=== PATIENT | female | born 1980 | race Caucasian/White ===

== ENCOUNTER 2023-03-25 18:09 | Inpatient (IN) | payer BC ==
[~2023-03-25] VITALS: Ht 162.6 cm; Wt 81.0 kg
[~2023-03-25 18:09] MED LIST: QUET50TA PO; [UNRECOGNIZED DRUG - CODE] PO
[2023-03-25 18:11] VITALS: TEMP 98.4
[2023-03-25] MEDS ORDERED: morphine 4 MG/ML inj SYRINge IV ONE ×3 (18:15→18:25)
[2023-03-25] MEDS ORDERED: heparin 25,000 UNIT/250ml bag 250 ML IV PRN (18:20)
[2023-03-25] MEDS ORDERED: nitroGLYCERIN 1gm ointment UD TP ONE (18:20)
[2023-03-25] MEDS ORDERED: heparin 10,000 units/1 ML INJ IV PRN (18:20)
[2023-03-25] MEDS ORDERED: heparin 10,000 units/1 ML INJ IV ONE (18:20)
[2023-03-25] MEDS ORDERED: tirofiban 12.5mg in NS 250mL 250 ML IV ONE (18:24)
[2023-03-25] MEDS ORDERED: ondansetron/PF 4mg/2ml inj IV ONE (18:25)
[2023-03-25] MEDS: nitroGLYCERIN 1gm ointment UD TP ONE ×2 (18:26→21:40)
--- NOTE | 2023-03-25 18:30 | NUR ---
Pt to syrup machine laborer, JOSE M Engel transporting.
[2023-03-25] MEDS ORDERED: fentaNYL/PF 50MCG/1 ML 2ML syringe ONE ×3 (18:37→18:56)
[2023-03-25] MEDS ORDERED: midazolam 1 mg/ML 2ml injection ONE ×3 (18:37→18:56)
[2023-03-25] MEDS ORDERED: diphenhydrAMINE 50 mg/ml inj ONE (18:38)
[2023-03-25 18:41] LABS: BASOPHILS % (AUTO) 0.3 % (0-1); EOSINOPHILS # (AUTO) 0.1 X10'3 (0-0.9); EOSINOPHILS % (AUTO) 0.5 % (0-6); HEMATOCRIT 41.5 % (35.0-45.0); HEMOGLOBIN 14.2 g/dl (12.0-16.0); LYMPHOCYTES # (AUTO) 3.4 X10'3 (1.1-4.8); LYMPHOCYTES % (AUTO) 31.7 % (21-51); MEAN CORPUSCULAR HEMOGLOBIN 32.2 PG (27.0-31.0); MEAN CORPUSCULAR HGB CONC 34.3 g/dL (33.0-36.5); MEAN PLATELET VOLUME 7.9 FL (7.4-10.4); MONOCYTES # (AUTO) 0.8 X10'3 (0-0.9); MONOCYTES % (AUTO) 7.1 % (2-12); NEUTROPHILS # (AUTO) 6.4 X10'3 (1.8-7.7); NEUTROPHILS % (AUTO) 60.4 % (42-75); PLATELET COUNT 276 X10'3 (140-440); RED BLOOD COUNT 4.42 X10'6 (4.20-5.60); RED CELL DISTRIBUTION WIDTH 13.4 % (11.5-14.5); WHITE BLOOD COUNT 10.6 X10'3 (4.5-11.0)
[2023-03-25] MEDS ORDERED: iohexol 350 MG/ML 50ML vial IV ONE ×2 (18:48→20:21)
[2023-03-25 18:53] LABS: ALANINE AMINOTRANSFERASE 20 U/L (12-78); ALBUMIN 3.8 G/DL (3.4-5.0); ALBUMIN/GLOBULIN RATIO 1.3 (1.1-1.5); ALKALINE PHOSPHATASE 75 IU/L (46-116); ANION GAP 10 (8-16); ASPARTATE AMINO TRANSFERASE 17 U/L (10-37); BILIRUBIN,TOTAL 0.4 MG/DL (0.1-1.0); BLOOD UREA NITROGEN 10 MG/DL (7-18); BUN/CREATININE RATIO 13.2 (10.0-20.0); CALCIUM 8.8 MG/DL (8.5-10.1); CHLORIDE 105 MMOL/L (99-107); CREATININE 0.76 MG/DL (0.40-0.90); GLUCOSE 117 MG/DL (70-104); POTASSIUM 4.2 MMOL/L (3.5-5.1); SODIUM 137 MMOL/L (135-145); TOTAL CARBON DIOXIDE 22.5 MMOL/L (24-32); TOTAL PROTEIN 6.7 G/DL (6.4-8.2); eCRCL 88 ML/MIN; eGFR 84 ML/MIN
[2023-03-25 19:00] LABS: MAGNESIUM 1.7 MG/DL (1.5-2.4); PRO BRAIN NATRIURETIC PEPTIDE 110 PG/ML (0-125)
[2023-03-25] MEDS ORDERED: nitroGLYCERIN 500mcg/5mL D5W 5 ML IV ONE (19:01)
[2023-03-25 19:05] LABS: INR 1.8 INR; PROTHROMBIN TIME 18.7 SECONDS (9.0-12.0)
[2023-03-25] MEDS ORDERED: iohexol 350MG/ML 100ml bottle IV ONE (19:36)
[2023-03-25] MEDS ORDERED: temazepam 15mg capsule PO PRN (21:00)
[2023-03-25] MEDS ORDERED: clopidogrel 300mg tablet PO ONE (21:10)
[2023-03-25 21:25] VITALS: BP_SYST 108; BP_SYST 123; BP_DIAS 54; BP_DIAS 67; PULSE 66; RESP 13; O2SAT 99
[2023-03-25] MEDS ORDERED: pantoprazole 40mg Tablet.DR PO ONE (21:40)
[2023-03-25 22:00] VITALS: BP 128/75; PULSE 56; RESP 20; O2SAT 97
[2023-03-25] MEDS ORDERED: morphine 2 MG/ML inj. syringe IV PRN ×2 (22:25)
[2023-03-25] MEDS ORDERED: acetaminophen 325mg tablet PO PRN ×4 (22:25→22:45)
[2023-03-25] MEDS ORDERED: HYDROmorphone inj. 0.5 MG/0.5 ML DISP.SYRIN IV PRN (22:25)
[2023-03-25] MEDS ORDERED: magnesium hydroxide 30ml (MOM) UD suspension PO PRN ×2 (22:25→22:45)
[2023-03-25] MEDS ORDERED: HYDROcodone/acetaminophen 10/325mg tab PO PRN ×2 (22:25→22:45)
[2023-03-25] MEDS ORDERED: diphenhydrAMINE 25mg capsule PO PRN (22:25)
[2023-03-25] MEDS ORDERED: ondansetron 4mg rapidly disintigrating tab PO PRN (22:25)
[2023-03-25] MEDS ORDERED: metoclopramide 5 mg/ml inj IV PRN (22:25)
[2023-03-25] MEDS ORDERED: ipratropium/albuterol 3ml nebule NEB PRN (22:25)
[2023-03-25] MEDS ORDERED: bisacodyl 10mg suppository rectal RC PRN (22:25)
[2023-03-25] MEDS ORDERED: mag hydrox/Alum hydrox/simeth 30ml oral suspension PO PRN (22:25)
[2023-03-25] MEDS ORDERED: ondansetron/PF 4mg/2ml inj IV PRN (22:25)
[2023-03-25] MEDS ORDERED: diphenhydrAMINE 50 mg/ml inj IV PRN (22:25)
[2023-03-25] MEDS ORDERED: HYDROcodone/acetaminophen 5mg/325mg tablet PO PRN (22:25)
--- NOTE | 2023-03-25 22:29 | NUR ---
third call to pharmacy to send plavix
[2023-03-25] MEDS: quetiapine 100mg tablet PO SCH (22:41)
[2023-03-25] MEDS ORDERED: proCHLORperazine 10 MG/2 ml inj IV PRN (22:45)
[2023-03-25] MEDS ORDERED: aspirin 81mg tab.chew PO ONE (22:45)
[2023-03-25] MEDS ORDERED: morphine 10mg/ml inj. IV PRN (22:45)
[2023-03-25] MEDS ORDERED: nitroGLYCERIN 0.4mg SUBLingual tab SL PRN (22:45)
[2023-03-25] MEDS: nitroGLYCERIN-Tridil 50MG/D5W 250 ML IV SCH (22:45)
[2023-03-25] MEDS ORDERED: normal saline 1000ml 1,000 ML IV ONE (22:55)
[2023-03-25] MEDS: normal saline 1000ml 1,000 ML IV SCH (22:56)
[2023-03-25] MEDS: morphine 4 MG/ML inj SYRINge IV PRN (22:59)
[2023-03-25 23:00] VITALS: BP 140/80; PULSE 55; RESP 19; O2SAT 98
[2023-03-25 23:04] LABS: HEMOGLOBIN A1C 5.1 % (4.5-6.2)
[2023-03-25 23:08] LABS: LIPASE 30 U/L (16-77); PHOSPHORUS 3.1 MG/DL (2.3-4.5)
[2023-03-25] MEDS ORDERED: tirofiban 12.5mg in NS 250mL 250 ML IV PRN (23:10)
[2023-03-25 23:41] LABS: BILIRUBIN,URINE NEGATIVE (Neg); CLARITY,URINE CLEAR (Clear); COLOR,URINE YELLOW (Yellow); GLUCOSE, URINE NEGATIVE (Neg); KETONES,URINE TRACE mg/dl (Neg); LEUKOCYTE ESTERASE ,URINE NEGATIVE (Neg); NITRITES, URINE NEGATIVE (Neg); OCCULT BLOOD,URINE NEGATIVE (Neg); PROTEIN,URINE NEGATIVE (Neg)
[2023-03-25 23:44] LABS: UA COLLECTION TYPE FOLEY CATH
[2023-03-26] VITALS (37 sets, daily range): BP systolic 90–133; BP diastolic 5–75; PULSE 49–83; RESP 11–21; O2SAT 93–99
[2023-03-26 00:36] LABS: BASOPHILS % (AUTO) 0.2 % (0-1); EOSINOPHILS % (AUTO) 0.4 % (0-6); HEMATOCRIT 34.5 % (35.0-45.0); HEMOGLOBIN 11.9 g/dl (12.0-16.0); LYMPHOCYTES # (AUTO) 3.1 X10'3 (1.1-4.8); LYMPHOCYTES % (AUTO) 36.2 % (21-51); MEAN CORPUSCULAR HEMOGLOBIN 32.5 PG (27.0-31.0); MEAN CORPUSCULAR HGB CONC 34.6 g/dL (33.0-36.5); MEAN CORPUSCULAR VOLUME 94.1 FL (78-98); MEAN PLATELET VOLUME 7.4 FL (7.4-10.4); MONOCYTES # (AUTO) 0.4 X10'3 (0-0.9); NEUTROPHILS % (AUTO) 58.2 % (42-75); PLATELET COUNT 228 X10'3 (140-440); RED BLOOD COUNT 3.67 X10'6 (4.20-5.60); RED CELL DISTRIBUTION WIDTH 13.1 % (11.5-14.5); WHITE BLOOD COUNT 8.5 X10'3 (4.5-11.0)
[2023-03-26 00:43] LABS: ALANINE AMINOTRANSFERASE 17 U/L (12-78); ALBUMIN 2.8 G/DL (3.4-5.0); ALBUMIN/GLOBULIN RATIO 1.2 (1.1-1.5); ALKALINE PHOSPHATASE 58 IU/L (46-116); ANION GAP 5 (8-16); ASPARTATE AMINO TRANSFERASE 18 U/L (10-37); BILIRUBIN,TOTAL 0.4 MG/DL (0.1-1.0); BLOOD UREA NITROGEN 7 MG/DL (7-18); BUN/CREATININE RATIO 13.5 (10.0-20.0); CALCIUM 7.9 MG/DL (8.5-10.1); CHLORIDE 109 MMOL/L (99-107); CHOL/HDL RATIO 4.2 (0.00-4.99); CHOLESTEROL 160 MG/DL (0-200); CREATININE 0.52 MG/DL (0.40-0.90); GLUCOSE 90 MG/DL (70-104); HDL CHOLESTEROL 38 MG/DL (35-60); LDL CHOLESTEROL 104 MG/DL (50-100); POTASSIUM 4.1 MMOL/L (3.5-5.1); SODIUM 137 MMOL/L (135-145); TOTAL CARBON DIOXIDE 22.9 MMOL/L (24-32); TOTAL PROTEIN 5.1 G/DL (6.4-8.2); TRIGLYCERIDES 83 MG/DL (20-135); eCRCL 123 ML/MIN; eGFR > 90 ML/MIN
[2023-03-26] MEDS: morphine 4 MG/ML inj SYRINge IV PRN ×3 (03:07→11:45)
--- NOTE | 2023-03-26 06:30 | NUR ---
Patient in room ICU 2046. I have received report from myrtle and had the opportunity to ask questions and assume patient care.
[2023-03-26] MEDS ORDERED: pantoprazole 40mg Tablet.DR PO SCH (07:30)
[2023-03-26] MEDS ORDERED: atorvastatin 20mg tablet PO SCH (08:00)
[2023-03-26] MEDS ORDERED: aspirin 81mg, enteric-coated 1 TAB TABLET.DR PO SCH (08:00)
[2023-03-26] MEDS ORDERED: docusate sod 100mg capsule PO SCH (08:00)
[2023-03-26] MEDS ORDERED: [UNRECOGNIZED DRUG - OTHER] PO SCH (08:00)
[2023-03-26] MEDS ORDERED: clopidogrel 75mg tablet PO SCH (08:00)
[2023-03-26] MEDS: docusate sod 100mg capsule PO SCH ×2 (08:41→20:00)
[2023-03-26] MEDS: cyclobenzaprine 10mg tablet PO PRN ×2 (09:41→18:47)
[2023-03-26] MEDS ORDERED: LIDOcaine 1% (10mg/ml)w/preservative inj. 20ml MDV ONE (09:52)
--- NOTE | 2023-03-26 10:30 | NUR ---
pt given 1 norco for posterior peralta pain- 'deidre out' neuro signs intact. pain now rt leg and sheath area- ms 4mg iv given, then flexeril. pain lessened with these meds. awaiting removal of rt fem sheath by ammunition assembly laborer.vss. no hematoma
--- NOTE | 2023-03-26 10:45 | NUR ---
c/o increased pain rt sheath and cramps rt leg- waveform dampened, but reading only 30s to 20's when waveform improved. flushing with ns and with transducer causes pt to yell out in pain. laboratory specialist called- awaiting dr jarrell availability to attempt removal of sheath.
--- NOTE | 2023-03-26 11:05 | NUR ---
Calorie count consult: Per EMR pt admit for STEMI, currently on a clear liquid diet. Calorie count not indicated at this time as current diet is insufficient to meet estimated nutrient needs regardless of PO intake. Per EMR pt with h/o gastric surgery. Per verbal d/w RN unsure if pt had a Dionicio-en-Y or gastric sleeve. Pt sleeping during attempted visit and RD asked not to wake pt as she has been in significant pain. Pt denied wt loss or decreased appetite/PO intake per malnutrition risk screen with RN. No nutrition interventions to be implemented at this time. Will continue to follow and make recommendations as appropriate. Addendum: 03/26/23 at [address] Amended: Links added.
--- NOTE | 2023-03-26 12:30 | NUR ---
cardiac cath technician personnel here- unable to place guide wire and remove sheath. will await dr martinez.
[2023-03-26] MEDS ORDERED: midazolam 1 mg/ML 2ml injection ONE (12:40)
[2023-03-26] MEDS ORDERED: fentaNYL/PF 50MCG/1 ML 2ML syringe ONE (12:40)
[2023-03-26] MEDS: normal saline 1000ml 1,000 ML IV SCH ×3 (13:00→22:53)
[2023-03-26] MEDS ORDERED: MESSAGE TO NURSING PO ONE ×2 (13:10)
[2023-03-26] MEDS ORDERED: cefazolin/dext.iso 2gm/50ml 50 ML IV ONE (13:10)
[2023-03-26] MEDS ORDERED: MESSAGE TO PHARMACY IJ ONE (13:10)
--- NOTE | 2023-03-26 14:00 | NUR ---
pt to go to or in am for removal of sheath- pt expressing continued uncomfortableness and pain. friends and at bs today. norco 10 2 and serax 15mg given- pt to sleep. friend brought her in food- took small amt chicken wings and fries
[2023-03-26] MEDS: HYDROcodone/acetaminophen 10/325mg tab PO PRN ×3 (15:03→22:53)
[2023-03-26] MEDS: OXAZEpam 15mg capsule PO PRN (15:03)
--- NOTE | 2023-03-26 18:15 | NUR ---
Patient in room ICU 2046. I have received report from Sandra SALGUERO and had the opportunity to ask questions and assume patient care.
[2023-03-26] MEDS: quetiapine 100mg tablet PO SCH (20:36)
[2023-03-26] MEDS ORDERED: QUETIAPINE FUMARATE 100 MG PO SCH (21:00)
[2023-03-26] MEDS: nitroGLYCERIN-Tridil 50MG/D5W 250 ML IV SCH (22:45)
[2023-03-27] VITALS (14 sets, daily range): BP systolic 96–150; BP diastolic 55–99; PULSE 46–74; RESP 16–20; O2SAT 94–97
[2023-03-27] MEDS: HYDROcodone/acetaminophen 10/325mg tab PO PRN ×2 (02:55→09:52)
[2023-03-27 05:35] LABS: HEMOGLOBIN 11.3 g/dl (12.0-16.0); MEAN CORPUSCULAR HEMOGLOBIN 32.3 PG (27.0-31.0); MEAN CORPUSCULAR HGB CONC 34.2 g/dL (33.0-36.5); MONOCYTES # (AUTO) 0.4 X10'3 (0-0.9)
[2023-03-27 05:37] LABS: BASOPHILS % (AUTO) 0.5 % (0-1); EOSINOPHILS # (AUTO) 0.1 X10'3 (0-0.9); EOSINOPHILS % (AUTO) 1.3 % (0-6); HEMATOCRIT 32.9 % (35.0-45.0); LYMPHOCYTES # (AUTO) 2.4 X10'3 (1.1-4.8); LYMPHOCYTES % (AUTO) 42.9 % (21-51); MEAN CORPUSCULAR VOLUME 94.5 FL (78-98); MEAN PLATELET VOLUME 7.5 FL (7.4-10.4); MONOCYTES % (AUTO) 7.8 % (2-12); NEUTROPHILS # (AUTO) 2.7 X10'3 (1.8-7.7); NEUTROPHILS % (AUTO) 47.5 % (42-75); PLATELET COUNT 170 X10'3 (140-440); RED BLOOD COUNT 3.49 X10'6 (4.20-5.60); RED CELL DISTRIBUTION WIDTH 13.3 % (11.5-14.5); WHITE BLOOD COUNT 5.7 X10'3 (4.5-11.0)
[2023-03-27 05:51] LABS: ALANINE AMINOTRANSFERASE 14 U/L (12-78); ALBUMIN 2.6 G/DL (3.4-5.0); ALBUMIN/GLOBULIN RATIO 1.2 (1.1-1.5); ALKALINE PHOSPHATASE 56 IU/L (46-116); ANION GAP 8 (8-16); ASPARTATE AMINO TRANSFERASE 23 U/L (10-37); BILIRUBIN,TOTAL 0.3 MG/DL (0.1-1.0); BLOOD UREA NITROGEN 8 MG/DL (7-18); BUN/CREATININE RATIO 14.3 (10.0-20.0); CALCIUM 7.8 MG/DL (8.5-10.1); CHLORIDE 110 MMOL/L (99-107); CREATININE 0.56 MG/DL (0.40-0.90); GLUCOSE 78 MG/DL (70-104); POTASSIUM 4.2 MMOL/L (3.5-5.1); SODIUM 140 MMOL/L (135-145); TOTAL CARBON DIOXIDE 22.1 MMOL/L (24-32); TOTAL PROTEIN 4.8 G/DL (6.4-8.2); eCRCL 114 ML/MIN; eGFR > 90 ML/MIN
--- NOTE | 2023-03-27 06:18 | NUR ---
Problems reprioritized. Patient report given, questions answered & plan of care reviewed with Sandra SALGUERO.
--- NOTE | 2023-03-27 06:30 | NUR ---
Patient in room ICU 2046. I have received report from anita and had the opportunity to ask questions and assume patient care.
[2023-03-27] MEDS ORDERED: ceFAZolin 1000mg inj ONE (06:53)
[2023-03-27] MEDS ORDERED: heparin 10,000 units/1 ML INJ ONE (06:53)
[2023-03-27] MEDS: morphine 4 MG/ML inj SYRINge IV PRN ×2 (06:57→09:07)
[2023-03-27] MEDS ORDERED: BUPIVAcaine 0.5% inj/PF 30 ML ONE (07:26)
[2023-03-27] MEDS ORDERED: cefazolin 2gm/D5W 100ml IV.soln IV ONE (07:43)
[2023-03-27] MEDS ORDERED: LIDOcaine 2% (20mg/ml) 5ml vial ONE (07:43)
[2023-03-27] MEDS ORDERED: sevoflurane 250ml liquid IH ONE (07:43)
--- NOTE | 2023-03-27 07:45 | NUR ---
pt signed surgical and blood consent. preop check list done. to or by bed
[2023-03-27] MEDS ORDERED: fentaNYL/PF 50MCG/1 ML 2ML syringe ONE (07:53)
[2023-03-27] MEDS ORDERED: midazolam 1 mg/ML 2ml injection ONE (07:53)
[2023-03-27] MEDS ORDERED: BUPIVAcaine/PF 2.5 mg/ml (0.25%) 30ml vial IJ ONE (08:16)
[2023-03-27] MEDS ORDERED: propofol inj 20 ML IV ONE (08:25)
[2023-03-27] MEDS ORDERED: ondansetron/PF 4mg/2ml inj ONE (08:44)
[2023-03-27] MEDS ORDERED: dexamethasone sod phosphate 4mg/ml inj. ONE (08:44)
--- NOTE | 2023-03-27 08:45 | NUR ---
pt returned from or crying, yelling out in pain- ms rmg, then 2mg given without pain relief. assisted pt to reposition to side.
--- NOTE | 2023-03-27 09:00 | NUR ---
rt sheath site drsg with sm amt drainage
--- NOTE | 2023-03-27 09:30 | NUR ---
continued pain rt leg- dr davis in, discussed with dr martinez. norco 10 x 2 and serax 15 given
[2023-03-27] MEDS: OXAZEpam 15mg capsule PO PRN (09:51)
[2023-03-27] MEDS ORDERED: MESSAGE TO NURSING PO ONE (10:00)
--- NOTE | 2023-03-27 10:30 | NUR ---
ok to go home- pain better, fc dcd and pt voided. family here. dr davis discussed quiting smoking to pt- she became angry- yelling out
[2023-03-27] MEDS ORDERED: ASPI-1071 PO ×2 (10:43)
[2023-03-27] MEDS ORDERED: ATOR20TA66 PO ×3 (10:43→12:45)
[2023-03-27] MEDS ORDERED: HYDR-3972 PO ×3 (10:43→13:25)
[2023-03-27] MEDS ORDERED: NITR0.4T51 SL ×3 (10:43→12:45)
[2023-03-27] MEDS ORDERED: CLOP75TA34 PO ×3 (10:43→12:45)
--- NOTE | 2023-03-27 11:30 | NUR ---
ivs dcd, instructions given- will change rt sheath drsg on wednesday and as needed- drsgs given. instructed to notify for bleeding, drainage, fever. call to dr davis re return to work and note- given. am meds given
--- NOTE | 2023-03-27 11:30 | NUR ---
out via [facility]. rx did not receive rx. call to rx and noted rx on chart is in [place]. dr davis notified. pts notified. rx closes at 1400- md aware and will escript rxs again no finance department available today, as pt willing to pay deposit for stay. will defer.
[2023-03-27] MEDS ORDERED: NICO1PAT36 TOP ×2 (11:34)
[2023-03-27] MEDS ORDERED: NICO-687 TOP (12:45)
[2023-03-27] MEDS ORDERED: ASPI81TA52 PO (12:45)
== END 2023-03-27 12:04 | disposition home or self-care (01) | DRG 322 ==
LOC: ER 18:10 → ICU 2S 20:45 → UNDOADMIN 20:45 → ICU 2S 22:29
PROVIDERS: ADMIT Student in an Organized Health Care Education/Training Program; ATTEND Family Medicine
PROC: 027035Z Dilation of Coronary Artery, One Artery with Two Drug-eluting Intraluminal Devices, Percutaneous Approach (ICD-10-PCS; principal; 2023-03-25)
PROC: 4A023N7 Measurement of Cardiac Sampling and Pressure, Left Heart, Percutaneous Approach (ICD-10-PCS; 2023-03-25)
PROC: B2111ZZ Fluoroscopy of Multiple Coronary Arteries using Low Osmolar Contrast (ICD-10-PCS; 2023-03-25)
PROC: B41F1ZZ Fluoroscopy of Right Lower Extremity Arteries using Low Osmolar Contrast (ICD-10-PCS; 2023-03-25)
PROC: 04QH0ZZ Repair Right External Iliac Artery, Open Approach (ICD-10-PCS; 2023-03-27)
DX: I21.19 ST elevation (STEMI) myocardial infarction involving other coronary artery of inferior wall (principal); I50.32 Chronic diastolic (congestive) heart failure; F17.210 Nicotine dependence, cigarettes, uncomplicated; E03.9 Hypothyroidism, unspecified; E66.9 Obesity, unspecified; E78.00 Pure hypercholesterolemia, unspecified; F32.A Depression, unspecified; Z98.84 Bariatric surgery status; Z87.442 Personal history of urinary calculi; Z68.29 Body mass index [BMI] 29.0-29.9, adult; Z71.6 Tobacco abuse counseling
CPT/HCPCS: 93458; 99285; C9600; Z7506; Z7508; 36415; 71045; 80053; 80061; 81003; 82948; 83036; 83690; 83735; 83880; 84100; 84443; 84484; 85025; 85610; 85730; 86885; 86900; 86901; 94760; 99152; 99153; A4618; A6213; A6258; A6449; A7000; C1725; C1751; C1758; C1760; C1769; C1874; G0378; J0690; J1100; J1200; J1644; J2250; J2270; J2405; J2704; J3010; J3246; J3490; J7030; J7040; J7120; Q9967; S0020